=== PATIENT | male | born 1985 ===

== ENCOUNTER 2018-01-09 09:34 | Emergency (ER) | payer OTHER ==
[2018-01-09 10:01] VITALS: BMI 40.1
[2018-01-09 10:10] VITALS: RESP 18; TEMP 99; O2SAT 98
--- NOTE | 2018-01-09 10:52 | ED PDOC ---
Arrival/HPI - General Historian: Patient - History of Present Illness Narrative History of Present Illness (Text): 01/09/18 10:49 32-year-old male presents today with headache, neck pain, back pain and left elbow pain status post fall 2 days ago. 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 States he had a helmet on and hit his head but denies loss of consciousness. Patient states he was seen by a doctor at the time of the incident and was given Advil. Patient states she has continued headaches and he feels achy in the neck upper and lower back. He denies abdominal pain. No nausea or vomiting states he has been eating and drinking well. He denies numbness weakness or tingling in the lower extremities. He denies bladder or bowel incontinence. She denies blurred vision. Patient states he's been taking Advil without improvement in his symptoms. No other complaints Time/Duration: Other (2 days around around 11am) <Mary Burgos - Last Filed: 01/09/18 17:43> <Spencer Paulino - Last Filed: 01/12/18 18:49> - General Chief Complaint: Back Pain Time Seen by Provider: 01/09/18 10:06 Past Medical History - Provider Review Nursing Documentation Reviewed: Yes - Travel History Have you recently traveled outside [place] w/in the past 3 mons?: No - Infectious Disease Hx of Infectious Diseases: None - Tetanus Immunization Tetanus Immunization: Unknown - Past Medical History Past Medical History: No Previous - Cardiac Hx Cardiac Disorders: No - Pulmonary Hx Respiratory Disorders: No - Neurological Hx Neurological Disorder: No - HEENT Hx HEENT Disorder: No - Renal Hx Renal Disorder: Yes Hx Kidney Stones: Yes - Endocrine/Metabolic Hx Endocrine Disorders: No - Hematological/Oncological Hx Blood Disorders: No - Integumentary Hx Dermatological Disorder: No - Musculoskeletal/Rheumatological Hx Musculoskeletal Disorders: Yes Hx Falls: No Hx Fractures: Yes (L ankle) - Gastrointestinal Hx Gastrointestinal Disorders: No - Genitourinary/Gynecological Hx Genitourinary Disorders: No - Psychiatric Hx Psychophysiologic Disorder: No Hx Substance Use: No - Past Surgical History Past Surgical History: No Previous - Surgical History Other/Comment: Left ankle repair with screws - Anesthesia Hx Anesthesia: No - Suicidal Assessment Feels Threatened In Home Enviroment: No <Mary Burgos - Last Filed: 01/09/18 17:43> Family/Social History - Physician Review Nursing Documentation Reviewed: Yes Family/Social History: Unknown Family HX Smoking Status: Former Smoker Hx Alcohol Use: No Hx Substance Use: No Hx Substance Use Treatment: No <JackNoman nascimentoclaritza Almeida - Last Filed: 01/09/18 17:43> Allergies/Home Meds <AubreyMary T - Last Filed: 01/09/18 17:43> <Spencer Paulino - Last Filed: 01/12/18 18:49> Allergies/Adverse Reactions: Allergies morphine Allergy (Verified 11/22/15 17:36) ITCHING Review of Systems - Review of Systems Constitutional: absent: Fatigue, Fevers Eyes: absent: Vision Changes, Photophobia, Eye Pain ENT: absent: TMJ Pain, Sore Throat Respiratory: absent: SOB, Cough Cardiovascular: absent: Chest Pain, Palpitations Gastrointestinal: absent: Abdominal Pain, Constipation, Diarrhea, Nausea, Vomiting Genitourinary Male: absent: Dysuria, Frequency, Hematuria, Urinary Output Landers ges Musculoskeletal: Arthralgias (left elbow pain), Back Pain, Neck Pain Skin: absent: Rash Neurological: Headache. absent: Dizziness Psychiatric: absent: Anxiety, Depression <Noman Burgosclaritza Almeida - Last Filed: 01/09/18 17:43> Physical Exam Vital Signs Reviewed: Yes Vital Signs Temp Pulse Resp BP Pulse Ox 01/09/18 10:04 99.0 F 66 18 123/83 98 Temperature: Afebrile Blood Pressure: Normal Pulse: Regular Respiratory Rate: Normal Appearance: Positive for: Well-Appearing, Non-Toxic, Comfortable Pain Distress: None Mental Status: Positive for: Alert and Oriented X 3 - Systems Exam Head: Present: Atraumatic. No: Tenderness, Swelling, Ecchymosis, Abrasion Pupils: Present: PERRL Extroacular Muscles: Present: EOMI Mouth: Present: Moist Mucous Membranes Neck: Present: Normal Range of Motion, Trachea Midline. No: MIDLINE TENDERNESS, Paraspinal Tenderness Respiratory/Chest: Present: Clear to Auscultation, Good Air Exchange, Other (no edema, no erythema, no ecchymosis; no step offs or crepitis. ). No: Respiratory Distress, Accessory Muscle Use, Tender to Palpation Cardiovascular: Present: Regular Rate and Rhythm. No: Murmurs Abdomen: Present: Other (no edema, no erythema; no ecchymosis; no tenderness. ). No: Tenderness, Distention, Peritoneal Signs, Rebound, Guarding Back: Present: Normal Inspection, Paraspinal Tenderness (+ left sided thoracic and lumbar paraspinal tenderness. no step offs, no crepitus. ). No: Midline Tenderness Upper Extremity: Present: Normal Inspection, Normal ROM, Neurovascularly Intact, Capillary Refill < 2s, Other (left elbow: no edema, no erythema; no ecchymosis; full rom of elbow; no tenderness. ) Lower Extremity: Present: Normal Inspection, Normal ROM Neurological: Present: GCS=15, Speech Normal Skin: Present: Warm, Dry, Normal Color. No: Rashes Psychiatric: Present: Alert, Oriented x 3 <Mary Burgos - Last Filed: 01/09/18 17:43> Vital Signs Temp Pulse Resp BP Pulse Ox 01/09/18 15:03 74 18 120/80 98 01/09/18 10:04 99.0 F 66 18 123/83 98 <Spencer Paulino - Last Filed: 01/12/18 18:49> Medical Decision Making ED Course and Treatment: 01/09/18 10:53 32yr old male presenting with headache, neck and back pain and left elbow pain s/p fall [address]:FINDINGS: HEMORRHAGE: No intracranial hemorrhage. BRAIN: No mass effect or edema. No atrophy or chronic microvascular ischemic changes. VENTRICLES: No hydrocephalus. CALVARIUM: Unremarkable. PARANASAL SINUSES: Unremarkable as visualized. No significant inflammatory changes. MASTOID AIR CELLS: Unremarkable as visualized. No inflammatory changes. OTHER FINDINGS: None. IMPRESSION: No acute intracranial pathology identified. neck ct: Findings: Straightening of the normal cervical lordosis may be related to muscle spasm or positioning. There is no evidence of acute fracture or subluxation. There is preserved alignment, vertebral body height, intervertebral disc spaces. The prevertebral soft tissues and spinolaminar lines appear intact. The lateral masses are preserved. The dens tip is intact. There is proper alignment of the lateral masses of C1 with the C2 vertebral body. Scattered subcentimeter lymph nodes throughout the neck, nonspecific. Included portions of the thyroid gland appear unremarkable. Included portions of lung apices appear clear. Impression: Straightening of the normal cervical lordosis may be related to muscle spasm or positioning. No evidence of acute fracture or subluxation. left elbow xray: no fracture Lspine xrays; no fracture tspine xray: no fracture chest/abd/pelvis; FINDINGS: CT CHEST WITH CONTRAST: LUNGS: Clear. No nodule, mass or consolidation. MEDIASTINUM: Unremarkable. Normal caliber aorta and pulmonary arterial trunk. No aortic dissection. Normal size heart. LYMPH NODES: Unremarkable. PLEURA: Unremarkable. No pneumothorax. No pleural fluid. BONES: Unremarkable. OTHER FINDINGS: None. CT ABDOMEN AND PELVIS: LIVER: Unremarkable. No gross lesion or ductal dilatation. GALLBLADDER AND BILE DUCTS: Unremarkable. PANCREAS: Unremarkable. No gross lesion or ductal dilatation. SPLEEN: Unremarkable. ADRENALS: Unremarkable. No mass. KIDNEYS AND URETERS: Unremarkable. No hydronephrosis. No solid mass. VASCULATURE: Unremarkable. No aortic aneurysm. BOWEL: Unremarkable. No obstruction. No gross mural thickening. APPENDIX: Normal appendix. PERITONEUM: Unremarkable. No free fluid. No free air. LYMPH NODES: Unremarkable. No enlarged lymph nodes. BLADDER: Unremarkable. REPRODUCTIVE: Unremarkable. BONES: No acute fracture. OTHER FINDINGS: None. IMPRESSION: No acute findings toradol and flexeril given for pain. pt advised to f/u with orthopedist within the next 2 days and return immediately if symptoms worsen,persist or if new symptoms develop. Patient verbalizes understanding of discharge instructions and need for immediate followup. all aspects of this case were discussed the attending of record. Impression: Back pain, neck pain, elbow contusion Patient nontoxic well-appearing in no distress with stable vital signs. Patient reassessment: Feeling better with medications ambulating with a steady gait. Muscle strength 5 out of 5 bilaterally. I advised to followup with the orthopedist within the next 2 days. Return if symptoms worsen persist or new symptoms develop Impression: Back pain, neck pain, elbow contusion Motrin every 6 hours as needed for pain Flexeril one tablet every 8 hours as needed for muscle spasms: May cause drowsiness Followup with the orthopedist within the next 2 days Followup with primary care physician within the next 2 days Return if symptoms worsen persist or if new symptoms develop - RAD Interpretation Radiology Orders: 01/09/18 10:26 HEAD W/O CONTRAST [CT] Stat 01/09/18 10:27 CERVICAL SPINE W/O CONTRAST [CT] Stat DORSAL (THORACIC) SPINE [RAD] Stat LS SPINE WITH OBL > 18 YRS OLD [RAD] Stat 01/09/18 10:30 ELBOW LEFT 3 VIEWS ROUTINE [RAD] Stat <Mary Burgos T - Last Filed: 01/09/18 17:43> - Lab Interpretations Lab Results: 01/09/18 12:40 01/09/18 12:40 Lab Results 01/09/18 12:40: WBC 9.4, RBC 5.00, Hgb 14.5, Hct 43.6, MCV 87.2, MCH 29.0, MCHC 33.3, RDW 12.8, Plt Count 331, MPV 9.0, Gran % 51.4, Lymph % (Auto) 38.0 H, [place] % (Auto) 5.0, Eos % (Auto) 4.3, Baso % (Auto) 1.3, Gran # 4.82, Lymph # (Auto) 3.6 H, [place] # (Auto) 0.5, Eos # (Auto) 0.4, Baso # (Auto) 0.12 01/09/18 12:40: Sodium 143, Potassium 4.6, Chloride 104, Carbon Dioxide 30, Anion Gap 14, BUN 12, Creatinine 0.8, Est GFR ( Amer) > 60, Est GFR (Non- Af Amer) > 60, Random Glucose 84, Calcium 9.4, Total Bilirubin 0.6, AST 57, ALT 100 H, Alkaline Phosphatase 73, Total Protein 8.3, Albumin 4.3, Globulin 3.9, Albumin/Globulin Ratio 1.1 - RAD Interpretation Radiology Orders: 01/09/18 10:26 HEAD W/O CONTRAST [CT] Stat 01/09/18 10:27 CERVICAL SPINE W/O CONTRAST [CT] Stat DORSAL (THORACIC) SPINE [RAD] Stat LS SPINE WITH OBL > 18 YRS OLD [RAD] Stat 01/09/18 10:30 ELBOW LEFT 3 VIEWS ROUTINE [RAD] Stat 01/09/18 12:24 CHEST,ABD,PEL W/IV CONT ONLY [CT] Stat - Medication Orders Current Medication Orders: Discontinued Medications Ketorolac Tromethamine (Toradol) 30 mg IVP STAT STA Stop: 01/09/18 14:52 Last Admin: 01/09/18 14:59 Dose: 30 mg MAR Pain Assessment Document 01/09/18 14:59 GMD (Rec: 01/09/18 14:59 GMD [id number]) Pain Reassessment Is this a pain reassessment? No IVP Administration Document 01/09/18 14:59 [facility] (Rec: 01/09/18 14:59 [id number] Charges for Administration # of IVP Administrations 1 <Spencer Paulino - Last Filed: 01/12/18 18:49> - PA / [employer] / Resident Statement MD/DO has reviewed & agrees with the documentation as recorded. <Spencer Paulino - Last Filed: 01/12/18 18:49> Disposition/Present on Arrival - Present on Arrival Any Indicators Present on Arrival: No History of DVT/PE: No History of Uncontrolled Diabetes: No Urinary Catheter: No History of Decub. Ulcer: No History Surgical Site Infection Following: None - Disposition Have Diagnosis and Disposition been Completed?: Yes Disposition Time: 10:58 Patient Plan: Discharge <Mary Burgos - Last Filed: 01/09/18 17:43> <Spencer Paulino - Last Filed: 01/12/18 18:49> - Disposition Diagnosis: Neck pain, Back pain, Elbow pain Disposition: HOSPITALIZED Condition: GOOD Discharge Instructions (ExitCare): Neck Pain, Low Back Pain (DC) Additional Instructions: Motrin every 6 hours as needed for pain Flexeril one tablet every 8 hours as needed for muscle spasms: May cause drowsiness Followup with the orthopedist within the next 2 days Followup with primary care physician within the next 2 days Return if symptoms worsen persist or if new symptoms develop Prescriptions: Cyclobenzaprine [Cyclobenzaprine HCl] 10 mg PO Q8 #10 tab Ibuprofen [Motrin] 600 mg PO Q6H PRN #20 tab PRN Reason: pain/fever reduction Referrals: [facility] [Outside] - Follow up with primary Roosevelt Roe MD [Staff Provider] - Follow up with primary Lucretia Bassett MD [Medical Doctor] - Follow up with primary [facility] [Outside] - Follow up with primary Forms: [employer] ([place]), WORK NOTE
--- NOTE | 2018-01-09 11:46 | CT ---
Date of service: 2018-01-09 11:10:20 PROCEDURE: CT HEAD WITHOUT CONTRAST. HISTORY: headache COMPARISON: None available. TECHNIQUE: Axial computed tomography images were obtained through the head/brain without intravenous contrast. Radiation dose: Total exam DLP = 1100.15 mGy-cm. This CT exam was performed using one or more of the following dose reduction techniques: Automated exposure control, adjustment of the mA and/or kV according to patient size, and/or use of iterative reconstruction technique. FINDINGS: HEMORRHAGE: No intracranial hemorrhage. BRAIN: No mass effect or edema. No atrophy or chronic microvascular ischemic changes. VENTRICLES: No hydrocephalus. CALVARIUM: Unremarkable. PARANASAL SINUSES: Unremarkable as visualized. No significant inflammatory changes. MASTOID AIR CELLS: Unremarkable as visualized. No inflammatory changes. OTHER FINDINGS: None. IMPRESSION: No acute intracranial pathology identified.
--- NOTE | 2018-01-09 11:50 | CT ---
Date of service: 01/09/18 CT cervical spine without IV contrast Indication: Neck pain Comparison: None available Technique: Axial computed tomography images were obtained of the cervical spine without the use of intravenous contrast. Coronal and sagittal reformatted images were created and reviewed. This CT exam was performed using 1 or more of the following dose reduction techniques: Automated exposure control, adjustment of the MAA and/or kV according to patient size, and/or use of iterative reconstruction technique. Radiation dose: Total exam DLP = 689.49 mGy-cm. Findings: Straightening of the normal cervical lordosis may be related to muscle spasm or positioning. There is no evidence of acute fracture or subluxation. There is preserved alignment, vertebral body height, intervertebral disc spaces. The prevertebral soft tissues and spinolaminar lines appear intact. The lateral masses are preserved. The dens tip is intact. There is proper alignment of the lateral masses of C1 with the C2 vertebral body. Scattered subcentimeter lymph nodes throughout the neck, nonspecific. Included portions of the thyroid gland appear unremarkable. Included portions of lung apices appear clear. Impression: Straightening of the normal cervical lordosis may be related to muscle spasm or positioning. No evidence of acute fracture or subluxation.
--- NOTE | 2018-01-09 12:43 | RAD ---
Date of service: 01/09/2018 PROCEDURE: Radiographs of the left elbow. HISTORY: elbow pain/ fall 2 days ago COMPARISON: No prior. FINDINGS: BONES: Normal. No fracture. JOINTS: Normal. No osteoarthritis. SOFT TISSUES: Normal. JOINT EFFUSION: None. OTHER FINDINGS: None IMPRESSION: Unremarkable radiographs of the left elbow.
--- NOTE | 2018-01-09 12:44 | RAD ---
Date of service: 01/09/2018 HISTORY: fall 2 days ago COMPARISON: No prior. FINDINGS: BONES: Alignment maintained. No fracture. DISC SPACES: Normal. SOFT TISSUES: Normal. OTHER FINDINGS: None. IMPRESSION: Normal radiographs of the thoracic spine.
--- NOTE | 2018-01-09 12:47 | RAD ---
Date of service: 01/09/2018 PROCEDURE: Radiographs of the Lumbar Spine. HISTORY: fall 2 days ago COMPARISON: No prior. FINDINGS: BONES: Normal alignment. No listhesis. No fracture. DISC SPACES: Unremarkable. OTHER FINDINGS: None. IMPRESSION: Unremarkable radiographs of the lumbar spine.
[2018-01-09 13:00] LABS: BASO # 0.12 K/mm3 (0.0-2.0); BASO % 1.3 % (0.0-3.0); EOS # 0.4 (0.0-0.7); EOS % 4.3 % (1.5-5.0); GRAN # 4.82 (1.4-6.5); GRAN % 51.4 % (50.0-68.0); HEMOGLOBIN 14.5 g/dL (14.0-18.0); LYMPH # 3.6 (1.2-3.4); MEAN CELL VOLUME 87.2 fl (80.0-105.0); MEAN CORPUSCULAR HGB CONC 33.3 g/dl (31.0-37.0); MONO # 0.5 (0.1-0.6); RED CELL DISTRIBUTION WIDTH 12.8 % (11.5-14.5); WHITE BLOOD COUNT 9.4 10^3/ul (4.5-11.0)
[2018-01-09 13:09] LABS: ALB/GLOB RATIO 1.1 (1.1-1.8); ALBUMIN 4.3 g/dL (3.0-4.8); ALT/SGPT 100 U/L (7-56); AST/SGOT 57 U/L (17-59); BLOOD UREA NITROGEN 12 mg/dL (7-21); CALCIUM 9.4 mg/dL (8.4-10.5); GFR NON-AFRICAN AMERICAN > 60
--- NOTE | 2018-01-09 14:33 | CT ---
Date of service: 01/09/2018 PROCEDURE: CT Chest, Abdomen and Pelvis with intravenous contrast HISTORY: trauma COMPARISON: None available. TECHNIQUE: IV dose administered: 150 cc of Omni 350 Radiation dose: Total exam DLP = 1661 mGy-cm. This CT exam was performed using one or more of the following dose reduction techniques: Automated exposure control, adjustment of the mA and/or kV according to patient size, and/or use of iterative reconstruction technique. FINDINGS: CT CHEST WITH CONTRAST: LUNGS: Clear. No nodule, mass or consolidation. MEDIASTINUM: Unremarkable. Normal caliber aorta and pulmonary arterial trunk. No aortic dissection. Normal size heart. LYMPH NODES: Unremarkable. PLEURA: Unremarkable. No pneumothorax. No pleural fluid. BONES: Unremarkable. OTHER FINDINGS: None. CT ABDOMEN AND PELVIS: LIVER: Unremarkable. No gross lesion or ductal dilatation. GALLBLADDER AND BILE DUCTS: Unremarkable. PANCREAS: Unremarkable. No gross lesion or ductal dilatation. SPLEEN: Unremarkable. ADRENALS: Unremarkable. No mass. KIDNEYS AND URETERS: Unremarkable. No hydronephrosis. No solid mass. VASCULATURE: Unremarkable. No aortic aneurysm. BOWEL: Unremarkable. No obstruction. No gross mural thickening. APPENDIX: Normal appendix. PERITONEUM: Unremarkable. No free fluid. No free air. LYMPH NODES: Unremarkable. No enlarged lymph nodes. BLADDER: Unremarkable. REPRODUCTIVE: Unremarkable. BONES: No acute fracture. OTHER FINDINGS: None. IMPRESSION: No acute findings
[2018-01-09 15:04] VITALS: BP 120/80; PULSE 74
== END 2018-01-09 15:07 | disposition home or self-care (01) ==
LOC: ED 09:34
DX: M54.2 Cervicalgia (principal); M54.9 Dorsalgia, unspecified; M25.522 Pain in left elbow; W01.0XXD Fall on same level from slipping, tripping and stumbling without subsequent striking against object, subsequent encounter
CPT/HCPCS: 70450; 71260; 72070; 72110; 72125; 73080; 74177; 80053; 85025; 96374; 99284; J1885; Q9967